=== PATIENT | female | born 1980 | race Caucasian/White ===

== ENCOUNTER → 2024-07-22 12:02 | Outpatient (REF) | payer BC, SELFPAY | LOC: WDC 12:02 | PROVIDERS: ATTENDING PHYSICIAN Nurse Practitioner | DX: Z12.31 Encounter for screening mammogram for malignant neoplasm of breast (principal) | CPT/HCPCS: 77063; 77067 ==

== ENCOUNTER → 2025-07-23 13:16 | Outpatient (REF) | payer BC, SELFPAY | LOC: WDC 13:16 | PROVIDERS: ATTENDING PHYSICIAN Nurse Practitioner | DX: Z12.31 Encounter for screening mammogram for malignant neoplasm of breast (principal) | CPT/HCPCS: 77063; 77067 ==

== ENCOUNTER 2025-08-02 13:55 | Emergency (ER) | payer BC, SELFPAY ==
[2025-08-02 13:59] VITALS: BP 125/78
--- NOTE | 2025-08-02 14:27 | ED.GENMED ---
History of Present Illness
General
Chief Complaint: Musculo-Skeletal Complaint
Time Seen by Provider: 08/02/25 14:26
History of Present Illness
History of Present Illness:
FOCUSED PAST MEDICAL HISTORY
- No significant past medical history
REVIEW OF OLD RECORDS
- I reviewed records, the patient had vaginal delivery here 09/18/2018
Note:
CHIEF COMPLAINT(S)
Horse kick injury to the torso and facial laceration.
HISTORY OF PRESENT ILLNESS
The patient is a 44-year-old female presenting after being kicked by a horse a couple of hours ago. The impact primarily affected the right side of her thorax. She reports some arm involvement, but she is able to move it without difficulty. The
patient also mentions a laceration near her left eyebrow. On examination, there is a 2.5 cm laceration lateral to the left eyebrow. She experiences pain primarily when pressure is applied to the ribs, but there is no significant abdominal
tenderness, and no right upper quadrant tenderness is noted. The patient is not on any anticoagulant therapy. Respiratory examination reveals symmetric breath sounds with no evidence of decreased breath sounds, reducing the likelihood of
pneumothorax.
PHYSICAL EXAM
General: Alert, no acute distress.
Skin: Warm, dry.
Head: Normocephalic, no significant hematoma
Neck: Supple, trachea midline.
Eye Ears, Nose, Mouth and Throat: Oral mucosa moist. 2.5 cm laceration just lateral to the left eyebrow.
Cardiovascular: Normal peripheral perfusion, No edema.
Respiratory: Respirations are non-labored, breath sounds heard equally bilaterally. No clinical evidence for rib fracture or pneumothorax based on examination
Gastrointestinal: Abdomen nondistended, no tenderness noted, specifically no right upper quadrant tenderness.
Back: Normal range of motion, Normal alignment.
Musculoskeletal: Normal range of motion, normal strength, patient able to move arm without difficulty.
Neurological: Alert and oriented to person, place, time, and situation, No focal neurological deficit observed.
Psychiatric: Cooperative, appropriate mood & affect.
PROBLEM LIST
Acute Problems:
- Laceration above the left eyebrow
- Thoracic injury due to horse kick
PLAN
- Recommend suturing the 2.5 cm laceration lateral to the left eyebrow for cosmetic improvement and to promote proper healing.
- Consider chest X-ray to rule out any subtle, non-displaced rib fractures, although injury seems unlikely due to the lack of significant respiratory distress or decreased breath sounds.
- Observe for any signs of respiratory compromise or distress that might suggest complications such as pneumothorax.
DIFFERENTIAL DIAGNOSIS
The Differential Diagnosis includes, in no particular order and is not limited to:
1. Rib fracture
2. Pneumothorax
3. Contusion of the thoracic wall
4. Liver laceration
5. Soft tissue hematoma
6. Hemothorax
7. Muscle strain
8. Costochondral separation
9. Lung contusion
10. Diaphragmatic injury
Disposition:
SUMMARY OF ENCOUNTER
The patient is a 44-year-old female who presented to the emergency department after being kicked by a horse. The primary impact was on the right thorax, with a secondary injury, a 2.5 cm laceration near her left eyebrow. In the emergency department,
the laceration was sutured using 5-0 Prolene. Her respiratory status was periodically reassessed, revealing no significant shortness of breath and suggesting a chest wall contusion rather than a more serious injury. Old records confirmed the patient
received a Tdap vaccine on September 20, 2018.
DISPOSITION
Discharge.
ASSESSMENT
The patient was diagnosed with a facial laceration, minor head injury, and chest wall contusion.
REASSESSMENT
Reassessment showed no significant shortness of breath. The patient was comfortable with the diagnosis and discharge plan.
PLAN
Suturing of the facial laceration was performed. Patient to observe for any worsening respiratory symptoms and ensure proper wound care for the laceration.
PROCEDURES
Suturing of a 2.5 cm laceration near the left eyebrow using 5-0 Prolene.
FOLLOW-UP INSTRUCTIONS
Follow up with primary care physician for wound assessment and any additional care recommendations.
MEDICAL DECISION MAKING
1. Number and Complexity of Problems Addressed:
Chronic conditions affecting care.
Differential Diagnosis included rib fracture, pneumothorax, contusion of the thoracic wall, liver laceration, soft tissue hematoma, hemothorax, muscle strain, costochondral separation, lung contusion, diaphragmatic injury.
2. Data:
Category 1
Non-emergency department records reviewed, confirming Tdap vaccination as of September 20, 2018.
Category 2
Clinical information involved periodic reassessment of the patients respiratory status.
3. Risk:
Consideration of Admission/Observation: Escalation of care including admission/observation was considered given the complexity and risk of the patients presenting complaint, exam findings, and/or their underlying comorbidities. However, ultimately I
feel the patient is safe for outpatient management with close follow-up. Reasoning: Work-up reassuring, does not reveal any acute life/organ threatening processes, patients symptoms are well-controlled upon reevaluation, reexamination is reassuring,
vitals are stable, patient agreeable with discharge, reliable for follow-up.
DIAGNOSIS
- Laceration of the left eyebrow, initial encounter
- Contusion of chest wall (ICD-10: S20.219A)
Phy Exam
Physical Exam
Physical Exam:
See HPI
Course
Vital Signs
Initial and Last Documented VS:
Initial Vital Signs
Temp Pulse Resp BP Pulse Ox
36.6 C 89 18 125/78 99
08/02/25 13:59 08/02/25 13:59 08/02/25 13:59 08/02/25 13:59 08/02/25 13:59
Last Documented Vital Signs
Temp Pulse Resp BP Pulse Ox
36.6 C 89 18 125/78 99
08/02/25 13:59 08/02/25 13:59 08/02/25 13:59 08/02/25 13:59 08/02/25 14:28
Procedures
Laceration Closure
Left Upper Face:
Status of Wound: clean
Size of Wound in cm: 2.5
Description of Wound Edges: sharp
Preparation: cleaned with saline
Anesthesia: 1% Lidocaine with epi
Revision/Debridement: routine- no revision
Wound exploration: explored to base- no FB
Type of Closure: single layer closure
Skin Closure Material: 5-0 prolene
Number of sutures: 5
*Pulse Oximetry
SaO2: 99
Oxygen Mode of Delivery: Room air
Patient hypoxic: no
*Critical Care Note
Total Time (30-74mins, 75-104mins- exclusive of procedures): Not Applicable
ED Attending Note
-
Portions of this chart may have been created with voice recognition software.� Occasional wrong word or��sound alike� substitutions may have occurred due to the inherent limitations of voice recognition software.
Discharge Plan
Departure
Patient Disposition: Home (Routine Discharge)
Date of Disposition: 08/02/25
Time of Disposition: 14:49
Patient with high blood pressure during this ER visit?: Yes
Discharge Problem:
Laceration of face, Chest wall contusion, Minor head injury
Instructions: Blunt Chest Trauma (DC), Stitches - ED (DC), Laceration
Prescriptions:
No Action
vit no.[id number] [ Vitamin] 1 EACH tablet
1 ea PO DAILY
sennosides-docusate sodium 1 TABLET tablet
1 tab PO DAILYPRN PRN (Reason: constipation) Qty: 30 0RF
ferrous sulfate [FeroSul] 325 MG tablet
325 mg PO BID Qty: 120 0RF
ibuprofen 600 MG tablet
600 mg PO Q4HPRN PRN (Reason: moderate pain/cramps) Qty: 90 0RF
Activity Restrictions/Additional Instructions:
I reviewed your records, you received a Tdap shot September 20, 2018. I placed 5 stitches; had these removed for your primary care doctor in approximately 5 to 7 days. I recommend no further than 7 days as it can increase the risk of scarring.
Return if worse or other concerns. Take Tylenol and/or Motrin for pain.
Interventions
Interventions:
*Risk Screen - Suicide Last Done: 08/02/25 13:59
*Nursing Disposition Last Done: 08/02/25 14:52
ED-Musculoskeletal Assessment Last Done: 08/02/25 14:31
Discharge Date and Time
Print Language: HUNGARIAN
== END 2025-08-02 16:14 | disposition home or self-care (01) ==
LOC: EMR 13:55
PROVIDERS: EMERGENCY PHYSICIAN Emergency Medicine; FAMILY PHYSICIAN Nurse Practitioner
DX: S01.81XA Laceration without foreign body of other part of head, initial encounter (principal); S09.90XA Unspecified injury of head, initial encounter; S20.219A Contusion of unspecified front wall of thorax, initial encounter; W55.12XA Struck by horse, initial encounter
CPT/HCPCS: 99282; 12011

== ENCOUNTER → 2025-08-09 10:15 | Outpatient (REF) | payer BC, SELFPAY | LOC: REG 10:15 | PROVIDERS: ATTENDING PHYSICIAN Physician Assistant | DX: M79.631 Pain in right forearm (principal) | CPT/HCPCS: 73090 ==